=== PATIENT | female | born 1935 | race Caucasian/White ===

== ENCOUNTER 2022-03-17 11:22 | Inpatient (IN) ==
[2022-03-17] MEDS ORDERED: 0.9 % SODIUM CHLORIDE 1,000 ML IV ONE ×2 (11:29→11:50)
[2022-03-17] MEDS ORDERED: ADENOSINE 3 MG/ML VIAL IV ONE ×4 (11:50→11:57)
[2022-03-17 11:51] LABS: POC Calcium, Ionized 1.19 (1.16-1.32); POC Creatinine 0.8 (0.6-1.2); POC Potassium 3.9 (3.3-5.1)
[2022-03-17] MEDS ORDERED: DILTIAZEM 25 MG/5 ML VIAL IV ONE ×3 (11:54→12:57)
--- NOTE | 2022-03-17 11:59 | Emergency Department Note ---
Weakness HPI General Chief complaint: Weakness Stated complaint: hypotension, fall, weakness Time Seen by Provider: 03/17/22 11:34 Source: patient Mode of arrival: ambulatory Limitations: no limitations History of Present Illness HPI Narrative: Narrative: The patient presents to the ED via EMS for complaints of generalized weakness. It was noted that she was tachycardic and hypotensive. Patient says symptoms started this morning. She denies any recent vomiting. She did have 1 episode of loose stools this morning. She denies dysuria or frequency. She denies cough or trouble breathing. She denies any fever. She denies any chest or abdominal pain. Patient denies any focal weakness but has an overall s ensation of weakness. Related Data Allergies Allergy/AdvReac Type Severity Reaction Status Date / Time No Known Drug Allergies Allergy Verified 03/17/22 11:27 Review of Systems ROS ROS Narrative: Narrative: All systems ED: reviewed and negative except as stated. PFSH Narrative Patient History Narrative: Narrative: Medical/Surgical/Family History All Active Problems (Updated 03/17/22 @ 14:49 by Alvaro Chandler MD) Atrial fibrillation with rapid ventricular response (Acute) Dehydration (Acute) Acute hypotension (Acute) General weakness (Acute) Elevated troponin (Acute) Social History Smoking Status: Never smoker Exam Narrative Narrative: Narrative: General Limitations: no limitations General appearance: Present alert and in distress Head Head: Present atraumatic and normal inspection Eye Eye: Present normal appearance, PERRL and EOMI ENT ENT: Present normal oropharynx and mucous membranes dry Neck Neck: Present normal inspection, full ROM and trachea midline; Absent meningismus Chest Chest: Present normal inspection and symmetric chest wall rise Respiratory Respiratory: Present normal lung sounds bilaterally; Absent respiratory distress Cardiovascular Cardiovascular: Present normal rhythm, tachycardia and other (+2 pulses all 4 extremities) Adbominal Abdominal: Present soft and normal bowel sounds; Absent distention, tenderness, guarding or rebound Extremities Extremities: Present normal inspection and full ROM; Absent tenderness Back Back: Present full ROM; Absent CVA tenderness (R) or CVA tenderness (L) Neurological Neurological: Present alert, oriented X3, CN II-XII intact and other (NIH stroke scale of 0); Absent motor sensory deficit Psychiatric Psychiatric: Present normal affect and normal mood Skin Skin: Present warm (WNL) and dry Course Reevaluation(s) Reevaluation #1: After the 10 mg of Cardizem was given, patient's blood pressure did slightly improved to systolic of 101. On the monitor, the patient's heart rate has slowed down to the 1 teens to 120s. It is now identifiable that it does appear irregular. We will give a second dose of Cardizem. Time: 12:14 Reevaluation #2: The patient had transient improvement with her blood pressure with the normal saline. However, her pressure then started to drop again. The second dose of Cardizem has been held. She has received her 2 L of fluid. At this point, plan to start a low-dose norepinephrine drip. Patient has declined the offer of a central line. Time: 12:35 Reevaluation #3: Patient's vital signs have become much more stable. Heart rate has come down into the range of 103. Systolic blood pressure is now greater than 110. Time: 13:23 Additional Reevaluation(s): 1339 -patient is still on a norepinephrine drip but her vital signs have become better. She is still slightly tachycardic. She still at this point has no complaints of chest pain or shortness of breath. Patient is informed of her results and that without intervention, she may . Patient again does not want resuscitation or any type of heroic measures or procedures. Patient has agreed to the medication and is amenable to staying in the hospital. She said that she would just like to be made comfortable. Consultations Consultation #1: I spoke to the hospitalist, Dr. Rodriguez. He said he would come down to the ED to evaluate this patient for local admission Time: 14:47 Vital Signs Vital signs: Vital Signs Temperature 97.8 F 03/17/22 11:23 Pulse Rate 178 H 03/17/22 11:23 Respiratory Rate 16 03/17/22 11:23 Blood Pressure 79/59 03/17/22 11:23 Pulse Oximetry (%) 97 03/17/22 11:23 Oxygen Delivery Method 03/17/22 11:23 Temperature 97.8 F 03/17/22 11:23 Pulse Rate 90 03/17/22 14:44 Respiratory Rate 14 03/17/22 14:44 Blood Pressure 120/106 03/17/22 14:30 Pulse Oximetry (%) 98 03/17/22 14:44 Oxygen Delivery Method 03/17/22 14:25 MDM MDM Narrative Medical decision making narrative: Narrative: The patient presents with a generalized weakness. It is noted that she is tachycardic and hypotensive. I did confirm with the patient that she does not want resuscitation. Plan to give IV fluid, get an EKG, and obtain appropriate labs to include urinalysis. EKG is suggestive of SVT. Patient was given initially 6 mg of adenosine. We had a transient slowing of the heart rate which then appeared to be sinus on the monitor. 12 mg of adenosine were then given with the same result. Unfortunately after both doses, patient's heart rate did speed back up. A third dose was given with the same effect. I did confirm with the patient her resuscitation status. I did also confirm with the patient that the neck step if the medication did not work would be to do cardioversion. Patient states that she does not want to have cardioversion. Plan to continue the IV fluid and if we can get patient's blood pressure slightly higher, we can give a low-dose of Cardizem to see if we can control the tachycardia. Lab Data Lab results reviewed: Yes I reviewed the patient's lab results. Result diagrams: 03/17/22 11:50 03/17/22 11:50 Labs: Lab Results 03/17/22 03/17/22 03/17/22 Range/Units 11:35 11:38 11:40 WBC (4.5-11.0) K/mcL RBC (3.59-5.38) M/mcL Hgb (11.2-15.7) g/dL Hct (34.1-44.9) % POC Hct 40.0 (36-48) MCV (80.0-100.0) fL MCH (26.0-34.0) pg MCHC (31.0-36.0) g/dL RDW (11.5-14.5) % Plt Count (140-440) K/mcL MPV (7.4-10.4) fL Immature Gran % (Auto) (0.0-0.5) % Neut % (Auto) (38.0-78.0) % Lymph % (Auto) (15.5-49.0) % [place] % (Auto) (1.0-12.0) % Eos % (Auto) (0.0-7.0) % Baso % (Auto) (0.0-2.0) % Lymph # (Auto) (1.50-4.80) K/mcL [place] # (Auto) (0.10-0.90) K/mcL Eos # (Auto) (0.00-0.70) K/mcL Baso # (Auto) (0.00-0.30) K/mcL Immature Gran # (0.00-0.05) K/mcl Absolute Neutrophils (1.80-8.00) K/mcL POC VBG pH 7.42 (7.32-7.42) POC VBG pCO2 at Temp 33.2 L (41-51) POC VBG pO2 34 (25-40) POC VBG HCO3 21.4 L (24-28) POC VBG Total CO2 22.0 L (25-29) POC Venous O2 Sat 67.0 (40-70) POC VBG Base Excess -3.0 L (-2-2) VBG Lactic Acid 1.9 (0.5-2) POC Sodium 139 (133-145) Sodium (133-145) mmol/L POC Potassium 3.9 (3.3-5.1) Potassium (3.3-5.1) mmol/L POC Chloride 106 (96-108) Chloride (96-108) mmol/L Carbon Dioxide (22-30) mmol/L POC Total CO2 21.0 L (22-30) Anion Gap (8.0-16.0) POC BUN 10 (6-20) BUN (8-23) mg/dL Creatinine (0.6-1.1) mg/dL POC Creatinine 0.8 (0.6-1.2) GFR Calculation Glucose (70-105) mg/dL POC Glucose 100 (70-105) Calcium (8.6-10.4) mg/dL POC WB Ioniz Calcium 1.19 (1.16-1.32) Total Bilirubin (0.1-1.0) mg/dL AST (<32) U/L ALT (<40) U/L Alkaline Phosphatase (39-117) U/L Total Protein (5.9-8.4) gm/dL Albumin (3.2-5.2) gm/dL Globulin (2.2-3.7) gm/dL Albumin/Globulin Ratio (1.0-2.3) POC Troponin I 0.09 H (0.02-0.08) 03/17/22 03/17/22 03/17/22 Range/Units 11:50 11:50 13:06 WBC 14.3 H (4.5-11.0) K/mcL RBC 4.05 (3.59-5.38) M/mcL Hgb 12.9 (11.2-15.7) g/dL Hct 39.3 (34.1-44.9) % POC Hct (36-48) MCV 97.0 (80.0-100.0) fL MCH 31.9 (26.0-34.0) pg MCHC 32.8 (31.0-36.0) g/dL RDW 14.2 (11.5-14.5) % Plt Count 282 (140-440) K/mcL MPV 10.9 H (7.4-10.4) fL Immature Gran % (Auto) 0.4 (0.0-0.5) % Neut % (Auto) 76.2 (38.0-78.0) % Lymph % (Auto) 12.6 L (15.5-49.0) % [place] % (Auto) 9.0 (1.0-12.0) % Eos % (Auto) 1.2 (0.0-7.0) % Baso % (Auto) 0.6 (0.0-2.0) % Lymph # (Auto) 1.80 (1.50-4.80) K/mcL [place] # (Auto) 1.29 H (0.10-0.90) K/mcL Eos # (Auto) 0.17 (0.00-0.70) K/mcL Baso # (Auto) 0.09 (0.00-0.30) K/mcL Immature Gran # 0.05 (0.00-0.05) K/mcl Absolute Neutrophils 10.87 H (1.80-8.00) K/mcL POC VBG pH (7.32-7.42) POC VBG pCO2 at Temp (41-51) POC VBG pO2 (25-40) POC VBG HCO3 (24-28) POC VBG Total CO2 (25-29) POC Venous O2 Sat (40-70) POC VBG Base Excess (-2-2) VBG Lactic Acid (0.5-2) POC Sodium (133-145) Sodium 136 (133-145) mmol/L POC Potassium (3.3-5.1) Potassium 4.0 (3.3-5.1) mmol/L POC Chloride (96-108) Chloride 105 (96-108) mmol/L Carbon Dioxide 21 L (22-30) mmol/L POC Total CO2 (22-30) Anion Gap 10.0 (8.0-16.0) POC BUN (6-20) BUN 9 (8-23) mg/dL Creatinine 0.7 (0.6-1.1) mg/dL POC Creatinine (0.6-1.2) GFR Calculation 78 Glucose 98 (70-105) mg/dL POC Glucose (70-105) Calcium 8.7 (8.6-10.4) mg/dL POC WB Ioniz Calcium (1.16-1.32) Total Bilirubin 0.4 (0.1-1.0) mg/dL AST 21 (<32) U/L ALT 11 (<40) U/L Alkaline Phosphatase 105 (39-117) U/L Total Protein 5.6 L (5.9-8.4) gm/dL Albumin 2.8 L (3.2-5.2) gm/dL Globulin 2.8 (2.2-3.7) gm/dL Albumin/Globulin Ratio 1.0 (1.0-2.3) POC Troponin I 0.27 H (0.02-0.08) Radiology Data Radiology results reviewed: Yes I reviewed the patient's radiology results. Radiology results narrative: Per my interpretation of the chest x-ray, there is no active disease EKG Data EKG #1: EKG attestation: Yes I reviewed and interpreted this EKG. and Yes There are no EKG findings of acute coronary syndrome EKG results narrative: SVT that is slightly irregular, rate 171, QTc 471, GA 75, normal axis, no acute ST or T changes concerning for acute infarction EKG #2: EKG attestation: Yes I reviewed and interpreted this EKG. and Yes There are no EKG findings of acute coronary syndrome EKG results narrative: Atrial fibrillation, rate 120, normal axis, QTC 477, narrow complex QRS, no acute ST or T changes concerning for acute infarction or ischemia Discharge Plan Patient/Caregiver Discharge Instructions Pt seen by UPS DRIVER/PA only: No Clinical Impression: Atrial fibrillation with rapid ventricular response, Dehydration, Acute hypotension, General weakness, Elevated troponin Patient Disposition: Xfer As Inpt ([facility]) Condition: Fair Follow up with: No,PCP [Primary Care Provider] -
[2022-03-17] MEDS ORDERED: NOREPINEPHRINE BITARTRATE 8 MG in 0.9 % SODIUM CHLORIDE 242 ML IV STA (12:34)
[2022-03-17] MEDS ORDERED: 0.9 % SODIUM CHLORIDE 250 ML IV SCH (12:45)
[2022-03-17 12:52] LABS: Basophils # (Auto) 0.09 K/mcL (0.00-0.30); Basophils % (Auto) 0.6 % (0.0-2.0); Eosinophils # (Auto) 0.17 K/mcL (0.00-0.70); Eosinophils % (Auto) 1.2 % (0.0-7.0); Hematocrit 39.3 % (34.1-44.9); Hemoglobin 12.9 g/dL (11.2-15.7); Lymphocytes % (Auto) 12.6 % (15.5-49.0); Mean Corpuscular HGB Conc 32.8 g/dL (31.0-36.0); Mean Platelet Volume 10.9 fL (7.4-10.4); Monocytes # (Auto) 1.29 K/mcL (0.10-0.90); Neutrophils % (Auto) 76.2 % (38.0-78.0); Platelet Count 282 K/mcL (140-440); RBC 4.05 M/mcL (3.59-5.38); Red Cell Distribution Width 14.2 % (11.5-14.5); WBC 14.3 K/mcL (4.5-11.0)
[2022-03-17 13:13] LABS: ALT/SGPT 11 U/L (<40); AST/SGOT 21 U/L (<32); Albumin 2.8 gm/dL (3.2-5.2); Alkaline Phosphatase 105 U/L (39-117); Bilirubin,Total 0.4 mg/dL (0.1-1.0); Blood Urea Nitrogen 9 mg/dL (8-23); Calcium 8.7 mg/dL (8.6-10.4); Carbon Dioxide 21 mmol/L (22-30); Chloride 105 mmol/L (96-108); Globulin 2.8 gm/dL (2.2-3.7); Glomerular Filtration Rate 78; Glucose 98 mg/dL (70-105)
--- NOTE | 2022-03-17 13:38 | XRay Report ---
CLINICAL INFORMATION: Trauma hypotension COMPARISON: Baseline film from 03/20/2020 and 11/09/2021 TECHNIQUE: Portable FINDINGS: The heart is borderline enlarged-slight increase. Mediastinum is normal. Pulmonary vessels are mildly distended and there is mild interstitial edema throughout both lungs. No infiltrates or effusions. IMPRESSION: Mild CHF. No post traumatic change Interpreted and Authenticated by: Ky Sandoval 03/17/22
[2022-03-17 15:12] LABS: Appearance,Urine Slightly Cloudy (Clear); Bilirubin,Urine Negative (Negative); Calcium Oxalate Crystals,Urine MANY /hpf; Color,Urine Yellow; Culture Indicated,Urine No; Glucose,Urine (UA) Negative (Negative); Ketones,Urine 15 mg/dL mg/dL (Negative); Leukocyte Esterase,Urine Negative /uL (Negative); Mucus,Urine FEW /hpf; Nitrate,Urine Negative (Negative); PH,Urine 5.5 (5.0-9.0); Specific Gravity,Urine 1.025 (1.000-1.035); Urine Blood Negative ery/mcL (Negative); Urine RBC 3 /hpf (0-3); Urine Squamous Epithelial Cell < 1 /hpf (0-4); Urine WBC 1 /hpf (0-4); Urobilinogen,Urine Normal
--- NOTE | 2022-03-17 15:25 | Internal Med History&Physical ---
HPI History of Present Illness Patient information: Note initiated : 03/17/22 at 3:15 pm Service Date, if different from initiated Date: [] Patient: Apple Jones a 86 y/o F admitted on for hypotension, fall, weakness. Chief Complaint: [] History of present illness: Ms. Jnoes is a 86 year old F Presents the ED with severe weakness. Patient used to live in [place] but moved down to [place] about a month ago. He went to bed feeling fine but this morning she woke with a headache. She started to feel very weak like she had a severe flu. She says she thought maybe she had some fevers. But more than that she says she felt like she was short of breath and her heart was racing and felt nauseous and she has some diarrhea. Denies any chest pain. In the ED she is found to be tachycardic in the 170s with a systolic blood pres sure in the 80s. She was given diltiazem. And subsequently put on a Levophed drip. Laboratory essentially unremarkable except for mildly elevated white blood cell count of 14. She is afebrile. Eventually the staff in the ED was able to take her off Levophed. Her heart rate is seem to stabilize. She had some mild elevation in troponin likely secondary to demand. He was given adenosine first which slowed her down enough to reveal what appeared to be A. fib. Chest x-ray showed mild pulmonary edema. Patient did not want cardioversion or transfer to higher level of care. She just wants to be made in for care if she does not respond to therapy. Looks like she was at [facility] in and October for common bile duct stone with hyperbilirubinemia and fluid overload with ERCP and laparoscopic gastrostomy tube placement sphincterotomy. Otherwise she says she has no medical history and does not take medications. Review of Systems: Positives as above. Denies chills/vomiting/chest or abdominal pain/cough/dyspnea. Remaining 10 point review of system reviewed negative PFSH PFSH All Active Problems (Updated 03/17/22 @ 14:49 by Alvaro Chandler MD) Atrial fibrillation with rapid ventricular response (Acute) Dehydration (Acute) Acute hypotension (Acute) General weakness (Acute) Elevated troponin (Acute) Social History smoking status: Never smoker MEDS/ALLERGIES Home Medications and Allergies Allergies Allergy/AdvReac Type Severity Reaction Status Date / Time No Known Drug Allergies Allergy Verified 03/17/22 11:27 EXAM Constitutional Vitals: Temp Pulse Resp BP Pulse Ox O2 Del Method 97.8 F 87 20 117/67 98 03/17/22 11:23 03/17/22 15:13 03/17/22 15:13 03/17/22 15:13 03/17/22 15:13 03/17/22 14:25 Exam: General: Alert, Awake, No acute Distress Eyes/N/T: EOMI, PERRL, Head/Neck: neck supple, normocephalic atraumatic CV: irreg irreg and mildly tachy, No murmurs, normal s1/s2 Pulm: Clear b/l, no wheezing/rhonchi/rales Abd: soft, nontender, +BS x4 Ext: no clubbing/cyanosis,b/l LE 1+ edema Neuro: Alert, no focal deficits, moves all extremities, CN 2-12 grossly intact, symmetrical strength b/l upper/lower, sensations intact b/l upper/lower Skin: warm/dry DATA Data Completed and Pending Labs: Labs from last 24 hours 03/17/22 03/17/22 03/17/22 13:37 13:06 11:50 WBC RBC Hgb Hct POC Hct MCV MCH MCHC RDW Plt Count MPV Immature Gran % (Auto) Neut % (Auto) Lymph % (Auto) [place] % (Auto) Eos % (Auto) Baso % (Auto) Lymph # (Auto) [place] # (Auto) Eos # (Auto) Baso # (Auto) Immature Gran # Absolute Neutrophils POC VBG pH POC VBG pCO2 at Temp POC VBG pO2 POC VBG HCO3 POC VBG Total CO2 POC Venous O2 Sat POC VBG Base Excess VBG Lactic Acid POC Sodium Sodium POC Potassium Potassium POC Chloride Chloride Carbon Dioxide POC Total CO2 Anion Gap POC BUN BUN Creatinine POC Creatinine GFR Calculation Glucose POC Glucose Calcium POC WB Ioniz Calcium Magnesium Pending Total Bilirubin AST ALT Alkaline Phosphatase Troponin T Total Protein Albumin Globulin Albumin/Globulin Ratio TSH Pending Urine Color Yellow Urine Appearance Slightly cloudy A Urine pH 5.5 Ur Specific [place] 1.025 Urine Protein 30 mg/dl A Urine Glucose (UA) Negative Urine Ketones 15 mg/dl A Urine Occult Blood Negative Urine Nitrate Negative Urine Bilirubin Negative Urine Urobilinogen Normal Ur Leukocyte Esterase Negative Urine RBC 3 Urine WBC 1 Ur Squamous Epith Cells < 1 Calcium Oxalate Crystal Many A Urine Bacteria None Urine Mucus Few A Ur Culture Indicated? No POC Troponin I 0.27 H 03/17/22 03/17/22 03/17/22 11:50 11:50 11:50 WBC 14.3 H RBC 4.05 Hgb 12.9 Hct 39.3 POC Hct MCV 97.0 MCH 31.9 MCHC 32.8 RDW 14.2 Plt Count 282 MPV 10.9 H Immature Gran % (Auto) 0.4 Neut % (Auto) 76.2 Lymph % (Auto) 12.6 L [place] % (Auto) 9.0 Eos % (Auto) 1.2 Baso % (Auto) 0.6 Lymph # (Auto) 1.80 [place] # (Auto) 1.29 H Eos # (Auto) 0.17 Baso # (Auto) 0.09 Immature Gran # 0.05 Absolute Neutrophils 10.87 H POC VBG pH POC VBG pCO2 at Temp POC VBG pO2 POC VBG HCO3 POC VBG Total CO2 POC Venous O2 Sat POC VBG Base Excess VBG Lactic Acid POC Sodium Sodium 136 POC Potassium Potassium 4.0 POC Chloride Chloride 105 Carbon Dioxide 21 L POC Total CO2 Anion Gap 10.0 POC BUN BUN 9 Creatinine 0.7 POC Creatinine GFR Calculation 78 Glucose 98 POC Glucose Calcium 8.7 POC WB Ioniz Calcium Magnesium Total Bilirubin 0.4 AST 21 ALT 11 Alkaline Phosphatase 105 Troponin T Pending Total Protein 5.6 L Albumin 2.8 L Globulin 2.8 Albumin/Globulin Ratio 1.0 TSH Urine Color Urine Appearance Urine pH Ur Specific [place] Urine Protein Urine Glucose (UA) Urine Ketones Urine Occult Blood Urine Nitrate Urine Bilirubin Urine Urobilinogen Ur Leukocyte Esterase Urine RBC Urine WBC Ur Squamous Epith Cells Calcium Oxalate Crystal Urine Bacteria Urine Mucus Ur Culture Indicated? POC Troponin I 03/17/22 03/17/22 03/17/22 11:40 11:38 11:35 WBC RBC Hgb Hct POC Hct 40.0 MCV MCH MCHC RDW Plt Count MPV Immature Gran % (Auto) Neut % (Auto) Lymph % (Auto) [place] % (Auto) Eos % (Auto) Baso % (Auto) Lymph # (Auto) [place] # (Auto) Eos # (Auto) Baso # (Auto) Immature Gran # Absolute Neutrophils POC VBG pH 7.42 POC VBG pCO2 at Temp 33.2 L POC VBG pO2 34 POC VBG HCO3 21.4 L POC VBG Total CO2 22.0 L POC Venous O2 Sat 67.0 POC VBG Base Excess -3.0 L VBG Lactic Acid 1.9 POC Sodium 139 Sodium POC Potassium 3.9 Potassium POC Chloride 106 Chloride Carbon Dioxide POC Total CO2 21.0 L Anion Gap POC BUN 10 BUN Creatinine POC Creatinine 0.8 GFR Calculation Glucose POC Glucose 100 Calcium POC WB Ioniz Calcium 1.19 Magnesium Total Bilirubin AST ALT Alkaline Phosphatase Troponin T Total Protein Albumin Globulin Albumin/Globulin Ratio TSH Urine Color Urine Appearance Urine pH Ur Specific [place] Urine Protein Urine Glucose (UA) Urine Ketones Urine Occult Blood Urine Nitrate Urine Bilirubin Urine Urobilinogen Ur Leukocyte Esterase Urine RBC Urine WBC Ur Squamous Epith Cells Calcium Oxalate Crystal Urine Bacteria Urine Mucus Ur Culture Indicated? POC Troponin I 0.09 H A/P Narrative A/P Narrative: A: *A. fib RVR (new onset): -CHADSVASC=3 *Pulmonary edema: 2/2 above *Hypotension: 2/2 above -Patient refused cardioversion but eventually was able to come off Levophed in the ED *Troponinemia: 2/2 Demand ischemia -pt does not want trasnfer for any cardiology procedures P: -esmolol gtt prn, start PO BB -check mag/tsh -echo pending -discuss anticoagulation -f/u CXR -monitor VS/UOP -PT/OT -CM for placement needs -f/u with cardiology outpt -ppx: Lovenox DNR/DNI Time Spent With Patient Time: Total time spent is greater than 50% in coordination of care (as documented) at patient's floor/unit and/or counseling patient: Total Critical Care Time: 50
[2022-03-17 15:39] LABS: Thyroid Stimulating Hormone 2.28 uIU/mL (0.27-5.01)
[2022-03-17] MEDS ORDERED: METOPROLOL TARTRATE 25 MG TABLET PO ONE (16:58)
[2022-03-17] MEDS ORDERED: IPRATROPIUM/ALBUTEROL 3 ML AMPUL.NEB NEB PRN (16:58)
[2022-03-17] MEDS ORDERED: SENNOSIDES 1 TABLET PO PRN (16:58)
[2022-03-17] MEDS ORDERED: POTASSIUM CHLORIDE 40 MEQ in DEXTROSE 5% IN WATER 500 ML IV PRN (16:58)
[2022-03-17] MEDS ORDERED: MAGNESIUM SULFATE 2 GM/50 ML BAG IV PRN (16:58)
[2022-03-17] MEDS ORDERED: POTASSIUM CHLORIDE 20 MEQ TABLET PO PRN ×2 (16:58)
[2022-03-17] MEDS ORDERED: POLYETHYLENE GLYCOL 3350 17 GM PACKET PO PRN (16:58)
[2022-03-17] MEDS ORDERED: ONDANSETRON 4 MG/2 ML VIAL IV PRN (16:58)
[2022-03-17] MEDS ORDERED: ACETAMINOPHEN 325 MG TABLET PO PRN (16:58)
[2022-03-17] MEDS: ESMOLOL 2,500 MG in PREMIX 1 BAG IV SCH (18:41)
[2022-03-17] MEDS: 0.9 % SODIUM CHLORIDE 250 ML IV SCH (18:42)
[2022-03-17] MEDS ORDERED: BUTALB/ACETAMINOPHEN/CAFFEINE 1 TABLET PO PRN (20:04)
[2022-03-17] MEDS: 0.9 % SODIUM CHLORIDE 10 ML SYRINGE IV SCH (22:00)
[2022-03-17] MEDS: METOPROLOL TARTRATE 25 MG TABLET PO SCH (22:07)
[2022-03-18] MEDS: METOPROLOL TARTRATE 25 MG TABLET PO SCH ×3 (01:15→20:33)
[2022-03-18] MEDS: 0.9 % SODIUM CHLORIDE 250 ML IV SCH ×2 (06:05→18:34)
[2022-03-18] MEDS: 0.9 % SODIUM CHLORIDE 10 ML SYRINGE IV SCH ×3 (06:05→21:11)
[2022-03-18 06:55] LABS: Hematocrit 36.7 % (34.1-44.9); Hemoglobin 11.6 g/dL (11.2-15.7); Mean Cell Volume 98.9 fL (80.0-100.0); Mean Corpuscular HGB Conc 31.6 g/dL (31.0-36.0); Mean Platelet Volume 10.7 fL (7.4-10.4); Platelet Count 205 K/mcL (140-440); RBC 3.71 M/mcL (3.59-5.38); Red Cell Distribution Width 14.6 % (11.5-14.5); WBC 6.2 K/mcL (4.5-11.0)
[2022-03-18] MEDS: ESMOLOL 2,500 MG in PREMIX 1 BAG IV SCH (07:01)
[2022-03-18 07:27] LABS: ALT/SGPT 16 U/L (<40); AST/SGOT 42 U/L (<32); Albumin 2.3 gm/dL (3.2-5.2); Alkaline Phosphatase 94 U/L (39-117); Bilirubin,Direct 0.2 mg/dL (<0.3); Bilirubin,Total 0.6 mg/dL (0.1-1.0); Blood Urea Nitrogen 7 mg/dL (8-23); Calcium 8.7 mg/dL (8.6-10.4); Carbon Dioxide 20 mmol/L (22-30); Chloride 109 mmol/L (96-108); Globulin 2.4 gm/dL (2.2-3.7); Glomerular Filtration Rate 87; Glucose 69 mg/dL (70-105); Lactate Dehydrogenase 196 U/L (135-225); Triglycerides 54 mg/dL (<150); Uric Acid 4.3 mg/dL (2.5-8.0)
--- NOTE | 2022-03-18 08:14 | Internal Med Progress Note ---
SUBJECTIVE Subjective Patient information: Note initiated : 03/18/22 at 8:08 am Service Date, if different from initiated Date: [] Patient: Apple Jones a 86 y/o F admitted on 03/17/22 for hypotens ion,fall,weakness; AFIB, RVR W/hypotension. Chief Complaint: [] Interval history: History of present illness: Ms. Jones is a 86 year old F Presents the ED with severe weakness. Patient used to live in [place] but moved down to [place] about a month ago. He went to bed feeling fine but this morning she woke with a headache. She started to feel very weak like she had a severe flu. She says she thought maybe she had some fevers. But more than that she says she felt like she was short of breath and her heart was racing and felt nauseous and she has some diarrhea. Denies any chest pain. In the ED she is found to be tachycardic in the 170s with a systolic blood pressure in the 80s. She was given diltiazem. And subsequently put on a Levophed drip. Laboratory essentially unremarkable except for mildly elevated white blood cell count of 14. She is afebrile. Eventually the staff in the ED was able to take her off Levophed. Her heart rate is seem to stabilize. She had some mild elevation in troponin likely secondary to demand. He was given adenosine first which slowed her down enough to reveal what appeared to be A. fib. Chest x-ray showed mild pulmonary edema. Patient did not want cardioversion or transfer to higher level of care. She just wants to be made in for care if she does not respond to therapy. Looks like she was at [facility] in [place] and October for common bile duct stone with hyperbilirubinemia and fluid overload with ERCP and laparoscopic gastrostomy tube placement sphincterotomy. Otherwise she says she has no medical history and does not take medications. 03/18 Patient feeling better today. she converted to sinus rhythm last night. Procedure issues he has had episodes of dizziness lightheadedness intermittently over the past year and possible that may have been paroxysmal A. fib episodes. Chronic cough. No shortness of breath. Review of Systems: denies headache/fever/chills/nausea/vomiting/chest or abdominal pain/diarrhea. Otherwise see above. Constitutional Vitals: Vital Signs Temp Pulse Resp BP Pulse Ox O2 Del Method 98.3 F 62 23 H 155/70 99 03/18/22 04:23 03/18/22 07:08 03/18/22 07:08 03/18/22 07:08 03/18/22 07:08 03/18/22 07:08 Period Temp Pulse Resp BP Sys/Toussaint Pulse Ox O2 Del Method O2 Flow Rate Last 24 Hr 97 F-99.2 F 41-178 9-28 79-155/46-106 95-100 Room Air-Room Air Intake and Output 03/17/22 03/18/22 03/18/22 21:59 05:59 13:59 Intake Total 155 Output Total 500 275 450 Balance -345 -275 -450 Weight 51.891 kg Intake & Output: Intake & Output 03/17/22 03/18/22 03/18/22 21:59 05:59 13:59 Intake Total 155 Output Total 500 275 450 Balance -345 -275 -450 Weight 51.891 kg Intake: IV 5 Levophed 8 mg In Sodium 5 Chloride 0.9% 242 ml @ 10 MCG/ MIN 18.75 mls/hr IV NOW STA Rx# :[id number] Oral 150 Output: Urine Catheter Amount 450 Void Amount 200 275 Urine/Stool Mix 300 Other: Meal Dinner [place] cup Percent of Meal Consumed 25% 100% Feeding Ability Independent Independent Urine Appearance Clear Clear Cloudy Urine Color Bright Yellow Yellow Light Lily Urine Odor Strong Stool Size Small Stool Color Brown Stool Consistency Soft # Bowel Movements 1 Exam: General: Alert, Awake, No acute Distress Eyes/N/T: EOMI, Head/Neck: neck supple, CV: RRR, No murmurs, Pulm: Clear b/l, no wheezing/rhonchi/rales Abd: soft, nontender, +BS x4 Ext: no clubbing/cyanosis, b/l LE 1+ edema Neuro: Alert, no focal deficits, moves all extremities, Skin: warm/dry OBJ DATA Labs CBC & Chem 7: 03/18/22 05:08 03/18/22 05:08 Labs: Abnormal Lab Results 03/18/22 03/18/22 03/18/22 05:08 05:08 05:08 WBC RDW 14.6 H MPV 10.7 H Lymph % (Auto) [place] # (Auto) Absolute Neutrophils POC VBG pCO2 at Temp POC VBG HCO3 POC VBG Total CO2 POC VBG Base Excess Chloride 109 H Carbon Dioxide 20 L POC Total CO2 BUN 7 L Creatinine 0.5 L Glucose 69 L AST 42 H Troponin T NT-Pro-B Natriuret Pep 1325.0 H Total Protein 4.7 L Albumin 2.3 L Urine Appearance Urine Protein Urine Ketones Calcium Oxalate Crystal Urine Mucus POC Troponin I 03/17/22 03/17/22 03/17/22 13:37 13:06 11:50 WBC RDW MPV Lymph % (Auto) [place] # (Auto) Absolute Neutrophils POC VBG pCO2 at Temp POC VBG HCO3 POC VBG Total CO2 POC VBG Base Excess Chloride Carbon Dioxide POC Total CO2 BUN Creatinine Glucose AST Troponin T NT-Pro-B Natriuret Pep 745.6 H Total Protein Albumin Urine Appearance Slightly cloudy A Urine Protein 30 mg/dl A Urine Ketones 15 mg/dl A Calcium Oxalate Crystal Many A Urine Mucus Few A POC Troponin I 0.27 H 03/17/22 03/17/22 03/17/22 11:50 11:50 11:50 WBC 14.3 H RDW MPV 10.9 H Lymph % (Auto) 12.6 L [place] # (Auto) 1.29 H Absolute Neutrophils 10.87 H POC VBG pCO2 at Temp POC VBG HCO3 POC VBG Total CO2 POC VBG Base Excess Chloride Carbon Dioxide 21 L POC Total CO2 BUN Creatinine Glucose AST Troponin T 0.03 H NT-Pro-B Natriuret Pep Total Protein 5.6 L Albumin 2.8 L Urine Appearance Urine Protein Urine Ketones Calcium Oxalate Crystal Urine Mucus POC Troponin I 03/17/22 03/17/22 03/17/22 11:40 11:38 11:35 WBC RDW MPV Lymph % (Auto) [place] # (Auto) Absolute Neutrophils POC VBG pCO2 at Temp 33.2 L POC VBG HCO3 21.4 L POC VBG Total CO2 22.0 L POC VBG Base Excess -3.0 L Chloride Carbon Dioxide POC Total CO2 21.0 L BUN Creatinine Glucose AST Troponin T NT-Pro-B Natriuret Pep Total Protein Albumin Urine Appearance Urine Protein Urine Ketones Calcium Oxalate Crystal Urine Mucus POC Troponin I 0.09 H Meds: Medications Acetaminophen (Acetaminophen 325 Mg Tablet) 650 mg PO Q6HP PRN; Protocol PRN Reason: Per Pain Protocol/Fever > 101 Acetaminophen/Butalbital/Caffeine (Butalb/Acetaminophen/Caffeine 1 Tablet) 1 tab PO Q4HP PRN PRN Reason: Headache Albuterol/Ipratropium (Ipratropium/Albuterol 3 Ml Ampul.Neb) 3 ml NEB Q4HP PRN PRN Reason: Shortness Of Breath Enoxaparin Sodium (Enoxaparin 40 Mg/0.4 Ml Syringe) 40 mg SQ DAILY [facility] Potassium Chloride 40 meq/ (Dextrose) 520 mls @ 130 mls/hr IV UD PRN PRN Reason: Potassium < 3 Magnesium Sulfate (Magnesium Sulfate) 2 gm in 50 mls @ 50 mls/hr IV UD PRN PRN Reason: Magnesium </= 1.6 Esmolol HCl 2,500 mg/ Premix 250 mls @ 16.18 mls/hr IV .[id number] [facility]; Protocol Last Admin: 03/18/22 07:01 Dose: Not Given Sodium Chloride (Sodium Chloride 0.9%) 250 mls @ 20 mls/hr IV .[id number] [facility] Last Admin: 03/18/22 06:05 Dose: Not Given Metoprolol Tartrate (Metoprolol Tartrate 25 Mg Tablet) 12.5 mg PO BID [facility] Last Admin: 03/18/22 01:15 Dose: 12.5 mg Ondansetron HCl (Ondansetron 4 Mg/2 Ml Vial) 4 mg IV Q4HP PRN PRN Reason: Nausea And Vomiting Polyethylene Glycol (Polyethylene Glycol 3350 17 Gm Packet) 17 gm PO DAILYP PRN PRN Reason: Constipation Potassium Chloride (Potassium Chloride 20 Meq Tablet) 40 meq PO UD PRN PRN Reason: Potssium is 3-3.5 Potassium Chloride (Potassium Chloride 20 Meq Tablet) 40 meq PO UD PRN PRN Reason: Potassium < 3 Senna (Sennosides 1 Tablet) 2 tab PO DAILYP PRN PRN Reason: Constipation Sodium Chloride (0.9 % Sodium Chloride 10 Ml Syringe) 10 ml IV Q8 [facility] Last Admin: 03/18/22 06:05 Dose: 10 ml A/P Narrative A/P Narrative: A: *A. fib RVR (new onset): -CHADSVASC=3 -converted to sinus last night *Pulmonary edema: 2/2 above, improving on f/u cxr *Hypotension: 2/2 above -Patient refused cardioversion but eventually was able to come off Levophed in the ED *Troponinemia, mild: 2/2 Demand ischemia -pt does not want trasnfer for any cardiology procedures P: -esmolol gtt prn, started PO BB -echo pending -discussed anticoagulation -f/u CXR -monitor VS/UOP -PT/OT -CM for placement needs -f/u with cardiology outpt -ppx: Lovenox bid DNR/DNI Time Spent With Patient Time: Total time spent is greater than 50% in coordination of care (as documented) at patient's floor/unit and/or counseling patient: Total time spent with greater than 50% in coordination of care (as documented) at patient's floor/unit and/or counseling patient:: 25 - 35 minutes
[2022-03-18 08:39] LABS: Band Neutrophils % 3 % (0-10); Basophils % (Manual) 1 % (0-2); Eosinophils % (Manual) 6 % (0-7); Lymphocytes % 24 % (15-49); Monocytes % (Manual) 6 % (1-12); Ovalocytes 1+ (None Seen); Platelet Estimate NORMAL (Normal); RBC Morphology ABNORMAL (Normal); Reactive Lymphocytes 1 % (0-2); Segmented Neutrophils % 59 % (38-78)
--- NOTE | 2022-03-18 08:47 | XRay Report ---
HISTORY: Follow-up pulmonary edema FINDINGS: There is a vague haziness in the central portion of the left lung. This could be residual edema or nonspecific inflammation. The right lung is now clear. The heart size is normal. The pulmonary vessels appear normal in caliber. No pleural effusion is present. There are numerous surgical clips in the left epigastrium. A moderate dextroscoliotic curvature is present in the midthoracic spine. IMPRESSION: Improved edema with residual nonspecific alveolar opacity in the central portion of the left lung which could be inflammation or asymmetric distribution of residual mild edema. Interpreted and Authenticated by: Gerardo Guadarrama 03/18/22
[2022-03-18] MEDS: ENOXAPARIN 40 MG/0.4 ML SYRINGE SQ SCH ×2 (08:57→20:33)
--- NOTE | 2022-03-18 08:57 | EKG ---
[facility] Test Date: 2022-03-17 Pat Name: Apple Jones Department: ED Room: Gender: Female Industrial Order Clerk: nayana : 1935 Requested By: lAvaro Chandler Order Number: [id number] Reading MD: Ky Guadarrama M.D. Measurements Intervals [place] Rate: 171 P: 0 TN: 75 QRS: 15 QRSD: 69 T: 93 QT: 279 QTc: 471 Interpretive Statements Atrial fibrillation with rapid ventricular response Repolarization abnormality, prob rate related Electronically Signed On 03-18-2022 8:56:42 PDT by Ky Guadarrama M.D. /store/[email or web address]/[id number]
--- NOTE | 2022-03-18 08:58 | EKG ---
[facility] Test Date: 2022-03-17 Pat Name: Apple Jones Department: ED Room: Gender: Female Dental Coordinator: AW : 1935 Requested By: Alvaro Chandler Order Number: [id number] Reading MD: Ky Guadarrama M.D. Measurements Intervals [place] Rate: 120 P: PA: QRS: 44 QRSD: 75 T: 61 QT: 337 QTc: 477 Interpretive Statements Atrial fibrillation; HR 120 bpm Electronically Signed On 03-18-2022 8:58:27 PDT by Ky Guadarrama M.D. /store/[email or web address]/[id number]
--- NOTE | 2022-03-18 08:59 | EKG ---
[facility] Test Date: 2022-03-17 Pat Name: Apple Jones Department: ED Room: Gender: Female Intramural Director: : 1935 Requested By: Alvaro Chandler Order Number: [id number] Reading MD: Ky Guadarrama M.D. Measurements Intervals [place] Rate: 61 P: 70 IA: 145 QRS: 21 QRSD: 83 T: 39 QT: 416 QTc: 419 Interpretive Statements Sinus rhythm Atrial premature complexes Borderline low voltage, extremity leads Electronically Signed On 03-18-2022 8:59:33 PDT by Ky Guadarrama M.D. /store/[email or web address]/[id number]/[id number]
[2022-03-18] MEDS ORDERED: ENOXAPARIN 40 MG/0.4 ML SYRINGE SQ SCH (09:00)
--- NOTE | 2022-03-18 09:00 | EKG ---
[facility] Test Date: 2022-03-17 Pat Name: Apple Jones Department: ICU Room: 120B Gender: Female Pack Press Operator: : 1935 Requested By: Kiel Rodriguez Order Number: [id number] Reading MD: Ky Guadarrama M.D. Measurements Intervals [place] Rate: 66 P: 49 OR: 149 QRS: 28 QRSD: 83 T: 46 QT: 417 QTc: 437 Interpretive Statements Sinus rhythm Atrial premature complex Borderline low voltage, extremity leads Electronically Signed On 03-18-2022 8:59:43 PDT by Ky Guadarrama M.D. /store/[email or web address]/[id number]
--- NOTE | 2022-03-18 11:57 | Discharge Summary ---
Discharge Provider Provider IMPORTANT FOLLOW-UP INFORMATION FOR PCP: Patient information: Note initiated : 03/18/22 at 11:55 am Service Date, if different from initiated Date: [] Patient: Apple Jones a 86 y/o F admitted on 03/17/22 for hypotension,fall,weakness; AFIB, RVR W/hypotension. Chief Complaint: [] Date of admission: 03/17/22 16:50 Discharge date: 03/19/22 Primary care physician: PCP No Consults: 03/17/22 Consult to Physician [CONS] Stat Comment: Consulting Provider: Kiel Rodriguez Reason For Exam: Physician to Consult COURSE Hospital Course Hospital course: Interval history: History of present illness: Ms. Jones is a 86 year old F Presents the ED with severe weakness. Patient used to live in [place] but moved down to [place] about a month ago. He went to bed feeling fine but this morning she woke with a headache. She started to feel very weak like she had a severe flu. She says she thought maybe she had some fevers. But more than that she says she felt like she was short of breath and her heart was racing and felt nauseous and she has some diarrhea. Denies any chest pain. In the ED she is found to be tachycardic in the 170s with a systolic blood pressure in the 80s. She was given diltiazem. And subsequently put on a Levophed drip. Laboratory essentially unremarkable except for mildly elevated white blood cell count of 14. She is afebrile. Eventually the staff in the ED was able to take her off Levophed. Her heart rate is seem to stabilize. She had some mild elevation in troponin likely secondary to demand. He was given adenosine first which slowed her down enough to reveal what appeared to be A. fib. Chest x-ray showed mild pulmonary edema. Patient did not want cardioversion or transfer to higher level of care. She just wants to be made in for care if she does not respond to therapy. Looks like she was at [facility] in and October for common bile duct stone with hyperbilirubinemia and fluid overload with ERCP and laparoscopic gastrostomy tube placement sphincterotomy. Otherwise she says she has no medical history and does not take medications. 03/18 Patient feeling better today. she converted to sinus rhythm last night. Procedure issues he has had episodes of dizziness lightheadedness intermittently over the past year and possible that may have been paroxysmal A. fib episodes. Chronic cough. No shortness of breath. 03/19 Patient feeling well. Heart rate stable. Started Eliquis and beta-meghann. A: *A. fib RVR (new onset): likely paroxysmal based on history -CHADSVASC=3 *Pulmonary edema: 2/2 above *Troponinemia, mild: 2/2 Demand ischemia P: -anticoagulation -Beta-meghann -f/u with cardiology outpt Discharge diagnosis: A. fib with RVR hypertension pulmonary edema demand cardiac ischemia Time Spent with Patient Time attestation: Total time spent providing and/or coordinating discharge services: Time spent: Greater than 30 minutes EXAM Constitutional Vitals: Temp Pulse Resp BP Pulse Ox O2 Del Method 98.2 F 58 L 22 145/69 99 03/18/22 08:00 03/18/22 11:01 03/18/22 11:01 03/18/22 11:01 03/18/22 11:01 03/18/22 10:00 Discharge Data Data Completed and Pending Labs on day of discharge: Labs from last 24 hours 03/18/22 03/18/22 03/18/22 05:08 05:08 05:08 WBC 6.2 RBC 3.71 Hgb 11.6 Hct 36.7 MCV 98.9 MCH 31.3 MCHC 31.6 RDW 14.6 H Plt Count 205 MPV 10.7 H Immature Gran % (Auto) Neut % (Auto) Lymph % (Auto) [place] % (Auto) Eos % (Auto) Baso % (Auto) Lymph # (Auto) [place] # (Auto) Eos # (Auto) Baso # (Auto) Seg Neutrophils % 59 Band Neutrophils % 3 Lymphocytes % 24 Monocytes % (Manual) 6 Eosinophils % (Manual) 6 Basophils % (Manual) 1 Immature Gran # Absolute Neutrophils Reactive Lymphocytes 1 Platelet Estimate Normal RBC Morphology Abnormal A Ovalocytes 1+ A Sodium 137 Potassium 3.8 Chloride 109 H Carbon Dioxide 20 L Anion Gap 8.0 BUN 7 L Creatinine 0.5 L GFR Calculation 87 Glucose 69 L Uric Acid 4.3 Calcium 8.7 Phosphorus 3.0 Magnesium 2.2 Total Bilirubin 0.6 Direct Bilirubin 0.2 GGT 10 AST 42 H ALT 16 Alkaline Phosphatase 94 Lactate Dehydrogenase 196 Troponin T NT-Pro-B Natriuret Pep 1325.0 H Total Protein 4.7 L Albumin 2.3 L Globulin 2.4 Albumin/Globulin Ratio 1.0 Triglycerides 54 TSH Urine Color Urine Appearance Urine pH Ur Specific Lane Urine Protein Urine Glucose (UA) Urine Ketones Urine Occult Blood Urine Nitrate Urine Bilirubin Urine Urobilinogen Ur Leukocyte Esterase Urine RBC Urine WBC Ur Squamous Epith Cells Calcium Oxalate Crystal Urine Bacteria Urine Mucus Ur Culture Indicated? POC Troponin I 03/17/22 03/17/22 03/17/22 13:37 13:06 11:50 WBC RBC Hgb Hct MCV MCH MCHC RDW Plt Count MPV Immature Gran % (Auto) Neut % (Auto) Lymph % (Auto) [place] % (Auto) Eos % (Auto) Baso % (Auto) Lymph # (Auto) [place] # (Auto) Eos # (Auto) Baso # (Auto) Seg Neutrophils % Band Neutrophils % Lymphocytes % Monocytes % (Manual) Eosinophils % (Manual) Basophils % (Manual) Immature Gran # Absolute Neutrophils Reactive Lymphocytes Platelet Estimate RBC Morphology Ovalocytes Sodium Potassium Chloride Carbon Dioxide Anion Gap BUN Creatinine GFR Calculation Glucose Uric Acid Calcium Phosphorus Magnesium Total Bilirubin Direct Bilirubin GGT AST ALT Alkaline Phosphatase Lactate Dehydrogenase Troponin T NT-Pro-B Natriuret Pep 745.6 H Total Protein Albumin Globulin Albumin/Globulin Ratio Triglycerides TSH Urine Color Yellow Urine Appearance Slightly cloudy A Urine pH 5.[address] 1.025 Urine Protein 30 mg/dl A Urine Glucose (UA) Negative Urine Ketones 15 mg/dl A Urine Occult Blood Negative Urine Nitrate Negative Urine Bilirubin Negative Urine Urobilinogen Normal Ur Leukocyte Esterase Negative Urine RBC 3 Urine WBC 1 Ur Squamous Epith Cells < 1 Calcium Oxalate Crystal Many A Urine Bacteria None Urine Mucus Few A Ur Culture Indicated? No POC Troponin I 0.27 H 03/17/22 03/17/22 03/17/22 11:50 11:50 11:50 WBC 14.3 H RBC 4.05 Hgb 12.9 Hct 39.3 MCV 97.0 MCH 31.9 MCHC 32.8 RDW 14.2 Plt Count 282 MPV 10.9 H Immature Gran % (Auto) 0.4 Neut % (Auto) 76.2 Lymph % (Auto) 12.6 L [place] % (Auto) 9.0 Eos % (Auto) 1.2 Baso % (Auto) 0.6 Lymph # (Auto) 1.80 [place] # (Auto) 1.29 H Eos # (Auto) 0.17 Baso # (Auto) 0.09 Seg Neutrophils % Band Neutrophils % Lymphocytes % Monocytes % (Manual) Eosinophils % (Manual) Basophils % (Manual) Immature Gran # 0.05 Absolute Neutrophils 10.87 H Reactive Lymphocytes Platelet Estimate RBC Morphology Ovalocytes Sodium 136 Potassium 4.0 Chloride 105 Carbon Dioxide 21 L Anion Gap 10.0 BUN 9 Creatinine 0.7 GFR Calculation 78 Glucose 98 Uric Acid Calcium 8.7 Phosphorus Magnesium 2.1 Total Bilirubin 0.4 Direct Bilirubin GGT AST 21 ALT 11 Alkaline Phosphatase 105 Lactate Dehydrogenase Troponin T NT-Pro-B Natriuret Pep Total Protein 5.6 L Albumin 2.8 L Globulin 2.8 Albumin/Globulin Ratio 1.0 Triglycerides TSH 2.28 Urine Color Urine Appearance Urine pH Ur Specific Lane Urine Protein Urine Glucose (UA) Urine Ketones Urine Occult Blood Urine Nitrate Urine Bilirubin Urine Urobilinogen Ur Leukocyte Esterase Urine RBC Urine WBC Ur Squamous Epith Cells Calcium Oxalate Crystal Urine Bacteria Urine Mucus Ur Culture Indicated? POC Troponin I 03/17/22 11:50 WBC RBC Hgb Hct MCV MCH MCHC RDW Plt Count MPV Immature Gran % (Auto) Neut % (Auto) Lymph % (Auto) [place] % (Auto) Eos % (Auto) Baso % (Auto) Lymph # (Auto) [place] # (Auto) Eos # (Auto) Baso # (Auto) Seg Neutrophils % Band Neutrophils % Lymphocytes % Monocytes % (Manual) Eosinophils % (Manual) Basophils % (Manual) Immature Gran # Absolute Neutrophils Reactive Lymphocytes Platelet Estimate RBC Morphology Ovalocytes Sodium Potassium Chloride Carbon Dioxide Anion Gap BUN Creatinine GFR Calculation Glucose Uric Acid Calcium Phosphorus Magnesium Total Bilirubin Direct Bilirubin GGT AST ALT Alkaline Phosphatase Lactate Dehydrogenase Troponin T 0.03 H NT-Pro-B Natriuret Pep Total Protein Albumin Globulin Albumin/Globulin Ratio Triglycerides TSH Urine Color Urine Appearance Urine pH Ur Specific Lane Urine Protein Urine Glucose (UA) Urine Ketones Urine Occult Blood Urine Nitrate Urine Bilirubin Urine Urobilinogen Ur Leukocyte Esterase Urine RBC Urine WBC Ur Squamous Epith Cells Calcium Oxalate Crystal Urine Bacteria Urine Mucus Ur Culture Indicated? POC Troponin I Discharge Plan Patient/Caregiver Discharge Instructions Activity: increase activity as tolerated Diet: Regular Diet Instructions: Metoprolol (By mouth), Apixaban (By mouth), A-fib (Atrial Fibrillation) (GEN) Activity Restrictions/Additional Instructions: Follow-up with PCP as scheduled, this is a one time post hospital follow up appointment with Elena Peters. A referral has been sent to see international first officer in 1 to 2 weeks for new atrial fibrillation. They will contact you to schedule an appointment. Increase activity as tolerated, continue with a regular diet. Your prescriptions have been electronically to the [facility]. Take all your medications as prescribed. This discharge packet is provided to you to help keep you informed about your care. We want to ensure you get everything you need when you go home. You will also be receiving a call from us in a few days to follow up with you and see how you are doing since your discharge. This gives us a chance to listen to any concerns you maybe experiencing since you were discharged or any additional needs you may have, as well as providing us feedback on your care experience. We strive to always provide excellent care and thank you for your feedback and for choosing [facility]. Prescriptions: New Eliquis 2.5 mg tablet 2.5 mg PO BID Qty: 60 0RF metoprolol tartrate 25 mg tablet 12.5 mg PO BID Qty: 60 0RF Continued multivitamin Tablet 1 tab PO QDAY Excedrin Migraine 250-250-65 mg Tablet 1 tab PO PRN PRN (Reason: Pain) Follow Up Plan Follow up with: Shayy Reagan ARNP [Nurse Practitioner] - (A referral has been sent, they will contact you to schedule an appointment.) Elena Peters DO [Physician] - 03/26/22 2:45 pm (Please check in at 2:30 pm. This is a one time post hospital appointment. ) Patient Disposition: Home Health Service Prognosis: Fair Overall status at discharge: patient is progressing back to baseline Discharge Orders: Discharge Order (Routine); Ordered 03/19/22 Ordered By: Kiel Rodriguez
[2022-03-19] MEDS: ESMOLOL 2,500 MG in PREMIX 1 BAG IV SCH (01:35)
[2022-03-19] MEDS: 0.9 % SODIUM CHLORIDE 250 ML IV SCH (05:41)
[2022-03-19] MEDS: 0.9 % SODIUM CHLORIDE 10 ML SYRINGE IV SCH (05:41)
[2022-03-19] MEDS: ENOXAPARIN 40 MG/0.4 ML SYRINGE SQ SCH (08:34)
[2022-03-19] MEDS: METOPROLOL TARTRATE 25 MG TABLET PO SCH (08:34)
== END 2022-03-19 10:46 | disposition home health service (06) | DRG 309 ==
LOC: ED 11:22 → ICU 16:50
PROVIDERS: ADMIT Internal Medicine; ATTEND Internal Medicine